=== PATIENT | female | born 1985 | race Two or more races ===

== ENCOUNTER 2020-10-18 11:19 | Emergency (ER) | payer OTHER ==
[~2020-10-18] VITALS: Ht 162.6 cm; Wt 60.8 kg
[~2020-10-18 11:19] MED LIST: FOLIC ACID1 MG PO; PREPLUS CA-FE1 EACH PO
[2020-10-18] MEDS ORDERED: ADULT LOW DOSE81 M1 (11:40)
== END 2020-10-18 14:42 | disposition home or self-care (01) ==
LOC: ER 11:19
DX: O26.843 Uterine size-date discrepancy, third trimester (principal); O34.211 Maternal care for low transverse scar from previous cesarean delivery; O26.893 Other specified pregnancy related conditions, third trimester; M54.5 Low back pain; R10.2 Pelvic and perineal pain; O60.03 Preterm labor without delivery, third trimester; Z3A.28 28 weeks gestation of pregnancy; Z20.822 Contact with and (suspected) exposure to COVID-19

== ENCOUNTER 2020-11-28 10:39 | Outpatient (CLI) | payer OTHER ==
[~2020-11-28 10:39] MED LIST changes: +ADULT LOW DOSE81 M1
== END 2020-11-28 16:47 | disposition home or self-care (01) ==
LOC: NST 10:39 → OBS/DEL 10:39
PROVIDERS: ATTEND Obstetrics & Gynecology
DX: O26.843 Uterine size-date discrepancy, third trimester (principal); O42.113 Preterm premature rupture of membranes, onset of labor more than 24 hours following rupture, third trimester; O36.8130 Decreased fetal movements, third trimester, not applicable or unspecified; O60.03 Preterm labor without delivery, third trimester; Z3A.33 33 weeks gestation of pregnancy

== ENCOUNTER 2020-12-08 12:46 | Outpatient (CLI) | payer OTHER | END 2020-12-08 14:56 | disposition home or self-care (01) | LOC: NST 12:46 | PROVIDERS: ATTEND Obstetrics & Gynecology | DX: Z34.83 Encounter for supervision of other normal pregnancy, third trimester (principal) ==

== ENCOUNTER 2020-12-15 11:22 | Outpatient (CLI) | payer OTHER | END 2020-12-15 12:03 | disposition home or self-care (01) | LOC: NST 11:22 | PROVIDERS: ATTEND Obstetrics & Gynecology | DX: Z34.82 Encounter for supervision of other normal pregnancy, second trimester (principal) ==

== ENCOUNTER 2020-12-19 13:00 | Outpatient (CLI) | payer OTHER | END 2020-12-19 13:14 | disposition home or self-care (01) | LOC: NST 13:00 | PROVIDERS: ATTEND Obstetrics & Gynecology | DX: Z34.82 Encounter for supervision of other normal pregnancy, second trimester (principal) ==

== ENCOUNTER 2020-12-20 14:30 | Inpatient (IN) | payer OTHER ==
[~2020-12-20] VITALS: Ht 162.6 cm; Wt 3.2 kg
== END 2020-12-29 13:32 | disposition home or self-care (01) | DRG 788 ==
LOC: LDR 12-26 13:06 → O/R 12-26 13:06 → SURG-SUITE 12-26 13:06 → O/R 12-26 14:52 → SURG-SUITE 12-26 15:13 → OB/GYN 12-27 09:00 → SURG-SUITE 12-29 13:32
PROVIDERS: ADMIT Obstetrics & Gynecology; ATTEND Obstetrics & Gynecology
PROC: 4A1HXFZ Monitoring of Products of Conception, Cardiac Rhythm, External Approach (ICD-10-PCS; 2020-12-26)
PROC: 10D00Z1 Extraction of Products of Conception, Low, Open Approach (ICD-10-PCS; principal; 2020-12-26 13:00)
DX: O65.5 Obstructed labor due to abnormality of maternal pelvic organs (principal); O34.211 Maternal care for low transverse scar from previous cesarean delivery; O13.4 Gestational [pregnancy-induced] hypertension without significant proteinuria, complicating childbirth; O24.429 Gestational diabetes mellitus in childbirth, unspecified control; Z3A.37 37 weeks gestation of pregnancy; Z37.0 Single live birth

== ENCOUNTER → 2020-12-25 | Outpatient (CLI) | payer OTHER | END | disposition home or self-care (01) | LOC: PRENATAL 08:16 | PROVIDERS: ATTEND Obstetrics & Gynecology Maternal & Fetal Medicine | DX: O26.843 Uterine size-date discrepancy, third trimester (principal); O35.0XX1 Maternal care for (suspected) central nervous system malformation in fetus, fetus 1; O36.8131 Decreased fetal movements, third trimester, fetus 1; Z36.89 Encounter for other specified antenatal screening; Z3A.38 38 weeks gestation of pregnancy ==